=== PATIENT | male | born 1960 ===

== ENCOUNTER 2020-07-22 11:00 | Inpatient (IN) | payer OTHER ==
[~2020-07-22] VITALS: Ht 175.3 cm; Wt 63.5 kg
[2020-07-22] MEDS ORDERED: TAMS0.4C PO (11:06)
[2020-07-22] MEDS ORDERED: DAFLONEX-XL 11300 MG PO (11:06)
[2020-08-03] MEDS ORDERED: POLY119PG PO (08:26)
[2020-08-03] MEDS ORDERED: INTESTINEX680 M1 PO (08:26)
[2020-08-03] MEDS ORDERED: NEURONTIN300 MG PO (08:26)
== END 2020-08-03 14:13 | disposition home or self-care (01) | DRG 330 ==
LOC: O/R 07-28 08:38 → SURH 07-28 11:00 → SURG 07-28 18:55 → O/R 07-31 09:46 → SURG 07-31 09:49 → O/R 08-02 11:48 → SURG 08-02 11:51
PROVIDERS: ADMIT Surgery; ATTEND Surgery
PROC: 0DTP4ZZ Resection of Rectum, Percutaneous Endoscopic Approach (ICD-10-PCS; 2020-07-28)
PROC: 07BB4ZZ Excision of Mesenteric Lymphatic, Percutaneous Endoscopic Approach (ICD-10-PCS; 2020-07-28)
PROC: 0DTN4ZZ Resection of Sigmoid Colon, Percutaneous Endoscopic Approach (ICD-10-PCS; principal; 2020-07-28 13:15)
DX: C19 Malignant neoplasm of rectosigmoid junction (principal); K62.5 Hemorrhage of anus and rectum; R59.0 Localized enlarged lymph nodes; B18.2 Chronic viral hepatitis C; N40.0 Benign prostatic hyperplasia without lower urinary tract symptoms

== ENCOUNTER → 2020-07-27 07:43 | Outpatient (CLI) | payer OTHER ==
[~2020-07-27 07:43] MED LIST: DAFLONEX-XL 11300 MG PO; INTESTINEX680 M1 PO; NEURONTIN300 MG PO; POLY119PG PO; TAMS0.4C PO
== END | disposition home or self-care (01) ==
LOC: NUCLEAR 07:00
PROVIDERS: ATTEND Internal Medicine Geriatric Medicine
DX: I83.008 Varicose veins of unspecified lower extremity with ulcer other part of lower leg (principal); I87.2 Venous insufficiency (chronic) (peripheral); Z86.718 Personal history of other venous thrombosis and embolism; Z09 Encounter for follow-up examination after completed treatment for conditions other than malignant neoplasm